=== PATIENT | female | born 1950 | race African-American/Black ===

== ENCOUNTER 2017-10-17 09:23 | Outpatient (CLI) | payer BC | END 2017-10-17 21:16 | disposition home or self-care (01) | LOC: SMA 09:23 | PROVIDERS: ATTEND Obstetrics & Gynecology | DX: R92.8 Other abnormal and inconclusive findings on diagnostic imaging of breast (principal); Z85.3 Personal history of malignant neoplasm of breast | CPT/HCPCS: G0204 ==

== ENCOUNTER 2018-10-25 09:52 | Outpatient (CLI) | payer BC | END 2018-10-25 20:59 | disposition home or self-care (01) | LOC: SMA 09:52 | PROVIDERS: ATTEND Obstetrics & Gynecology | DX: R92.8 Other abnormal and inconclusive findings on diagnostic imaging of breast (principal); Z85.3 Personal history of malignant neoplasm of breast | CPT/HCPCS: 77066 ==

== ENCOUNTER 2019-11-12 10:13 | Outpatient (CLI) | payer BC, OTHER | END 2019-11-12 19:20 | disposition home or self-care (01) | LOC: SMA 10:13 | PROVIDERS: ATTEND Obstetrics & Gynecology | DX: R92.8 Other abnormal and inconclusive findings on diagnostic imaging of breast (principal); Z85.3 Personal history of malignant neoplasm of breast | CPT/HCPCS: 77066 ==

== ENCOUNTER 2020-12-07 10:04 | Outpatient (CLI) | payer BC, OTHER | END 2020-12-07 20:37 | disposition home or self-care (01) | LOC: SMA 10:04 | PROVIDERS: ATTEND Obstetrics & Gynecology | DX: Z12.31 Encounter for screening mammogram for malignant neoplasm of breast (principal); Z85.3 Personal history of malignant neoplasm of breast | CPT/HCPCS: 77067 ==

== ENCOUNTER 2021-12-20 08:57 | Outpatient (CLI) | payer BC, OTHER | END 2021-12-20 20:06 | disposition home or self-care (01) | LOC: SMA 08:57 | PROVIDERS: ATTEND Obstetrics & Gynecology | DX: Z12.31 Encounter for screening mammogram for malignant neoplasm of breast (principal); N64.89 Other specified disorders of breast | CPT/HCPCS: 77067 ==

== ENCOUNTER 2023-01-02 09:54 | Outpatient (CLI) | payer BC, OTHER | END 2023-01-02 18:12 | disposition home or self-care (01) | LOC: SMA 09:54 | PROVIDERS: ATTEND Obstetrics & Gynecology | DX: Z12.31 Encounter for screening mammogram for malignant neoplasm of breast (principal); N64.89 Other specified disorders of breast | CPT/HCPCS: 77067 ==

== ENCOUNTER 2024-01-05 09:41 | Outpatient (CLI) | payer BC, OTHER | END 2024-01-05 15:15 | disposition home or self-care (01) | LOC: SMA 09:41 | PROVIDERS: ATTEND Specialist | DX: Z12.31 Encounter for screening mammogram for malignant neoplasm of breast (principal) | CPT/HCPCS: 77067 ==